=== PATIENT | male | born 1985 | race Caucasian/White ===

== ENCOUNTER 2016-12-13 00:51 | Emergency (ER) | payer MEDICAID, OTHER ==
[~2016-12-13] VITALS: Ht 185.4 cm; Wt 116.0 kg
[~2016-12-13 00:51] MED LIST: ASEN10TA10
[2016-12-13] MEDS ORDERED: KETOROLAC 60MG/2ML VIAL IM ONE (04:45)
[2016-12-13] MEDS ORDERED: HYDROCODONE/ACETAMINOPHEN 10/325MG TABLET PO ONE (05:00)
[2016-12-13 05:57] VITALS: BP 122/71
== END 2016-12-13 05:59 | disposition home or self-care (01) ==
LOC: ER 00:51
DX: S39.012A Strain of muscle, fascia and tendon of lower back, initial encounter (principal); G89.29 Other chronic pain; M25.561 Pain in right knee; M25.562 Pain in left knee; H40.9 Unspecified glaucoma; X58.XXXA Exposure to other specified factors, initial encounter; Y93.89 Activity, other specified; Y92.89 Other specified places as the place of occurrence of the external cause; Y99.8 Other external cause status
CPT/HCPCS: 96372; 99283; J1885; Z7610

== ENCOUNTER 2016-12-31 03:48 | Emergency (ER) | payer MEDICAID ==
[~2016-12-31] VITALS: Ht 185.4 cm; Wt 113.8 kg
[2016-12-31] MEDS ORDERED: KETOROLAC 30MG/ML VIAL IM ONE (05:00)
[2016-12-31] MEDS ORDERED: ONDANSETRON 4MG ODT PO ONE (05:00)
[2016-12-31] MEDS ORDERED: HYDROCODONE/ACETAMINOPHEN 5/325MG TABLET PO ONE (07:00)
[2016-12-31 07:10] VITALS: BP 108/71
== END 2016-12-31 07:13 | disposition home or self-care (01) ==
LOC: ER 03:48
DX: S39.012A Strain of muscle, fascia and tendon of lower back, initial encounter (principal); M54.5 Low back pain; X58.XXXA Exposure to other specified factors, initial encounter; Y93.9 Activity, unspecified; Y92.9 Unspecified place or not applicable; M54.30 Sciatica, unspecified side; H40.9 Unspecified glaucoma; F12.90 Cannabis use, unspecified, uncomplicated; Z88.8 Allergy status to other drugs, medicaments and biological substances; Z87.39 Personal history of other diseases of the musculoskeletal system and connective tissue
CPT/HCPCS: 96372; 99283; J1885; Q0162; Z7610

== ENCOUNTER 2017-01-11 03:10 | Emergency (ER) | payer MEDICAID ==
[~2017-01-11] VITALS: Ht 185.4 cm; Wt 114.0 kg
[2017-01-11] MEDS ORDERED: KETOROLAC 30MG/ML VIAL IM ONE (06:15)
[2017-01-11] MEDS ORDERED: MORPHINE SULFATE 10 MG/ML CPJ IM ONE (06:15)
[2017-01-11 07:24] VITALS: BP 132/77
== END 2017-01-11 07:24 | disposition home or self-care (01) ==
LOC: ER 03:10
DX: G89.29 Other chronic pain (principal); M25.562 Pain in left knee; M25.561 Pain in right knee; F12.10 Cannabis abuse, uncomplicated; H40.9 Unspecified glaucoma; M19.90 Unspecified osteoarthritis, unspecified site; X50.1XXA Overexertion from prolonged static or awkward postures, initial encounter; Y93.01 Activity, walking, marching and hiking; Y92.89 Other specified places as the place of occurrence of the external cause; Y99.8 Other external cause status
CPT/HCPCS: 96372; 99284; J1885; J2270; Z7610

== ENCOUNTER 2017-07-18 14:01 | Emergency (ER) | payer MEDICAID ==
[~2017-07-18] VITALS: Ht 185.4 cm; Wt 125.0 kg
[2017-07-18 14:16] VITALS: BP 139/82
[2017-07-18 15:00] LABS: BASOPHILS % 0.9 % (0.0-2.0); HEMATOCRIT. 39.9 % (42.0-52.0); LYMPHOCYTES % 26.1 % (20.0-50.0); MEAN CORPUSCULAR HEMOGLOBIN 30.4 pg (28.0-32.0); MEAN CORPUSCULAR VOLUME 86.7 fL (80.0-94.0); MEAN PLATELET VOLUME 8.1 fl (7.4-10.4); MONOCYTES % 10.3 % (2.0-8.0); NEUTROPHILS % 60.7 % (40.0-76.0); PLATELET 275 x1000/uL (130-400)
[2017-07-18 15:06] LABS: CHLORIDE 107 mEq/L (98-107)
[2017-07-18 15:08] LABS: INR 1.1; PROTHROMBIN TIME 11.4 sec (9.4-11.6)
== END 2017-07-18 16:54 | disposition left against medical advice (07) ==
LOC: ER 15:20
DX: R10.9 Unspecified abdominal pain (principal); R11.0 Nausea
CPT/HCPCS: 36415; 80053; 83690; 85025; 85610; 99284